=== PATIENT | male | born 2000 | race Two or more races ===

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

== ENCOUNTER → 2020-04-11 | Outpatient (REF) | payer OTHER | LOC: M SFHCLERA 15:12 | PROVIDERS: ATTEND Physician Assistant | DX: J02.9 Acute pharyngitis, unspecified (principal) ==

== ENCOUNTER 2020-04-21 21:47 | Emergency (ER) | payer OTHER ==
[~2020-04-21] VITALS: Ht 182.9 cm; Wt 113.6 kg
[2020-04-21] MEDS ORDERED: NAPROXEN 250 MG TAB PO ONE (23:30)
[2020-04-22 00:13] LABS: BASO % 0.3 % (0.0-1.0); EOS # 0.4 10^3/uL (0.0-0.5); EOS % 4.9 % (0.0-3.0); HEMATOCRIT 41.9 % (42.0-52.0); HEMOGLOBIN 14.7 g/dl (13.5-17.5); LYMPH # 2.1 10^3/uL (1.5-5.0); LYMPH % 27.8 % (24.0-44.0); MEAN CORPUSCULAR HEMOGLOBIN 29.5 pg (27.0-33.0); MEAN CORPUSCULAR HGB CONC 35.1 g/dl (32.0-36.5); MEAN CORPUSCULAR VOLUME 84.1 fl (80.0-96.0); MONO # 0.6 10^3/uL (0.0-0.8); MONO % 7.5 % (0.0-5.0); NEUTROPHILS # 4.4 10^3/uL (1.5-8.5); NEUTROPHILS % 59.2 % (36.0-66.0); PLATELET COUNT, AUTOMATED 235 10^3/uL (150-450); RED BLOOD COUNT 4.98 10^6/uL (4.30-6.10); WHITE BLOOD COUNT 7.4 10^3/uL (4.0-10.0)
[2020-04-22 00:29] LABS: CK-MB VALUE MASS < 1.0 NG/ML (<3.6); CPK CREATINE PHOSPHOKINASE 93 U/L (39-308); MB/CK RELATIVE INDEX 1.08 (< OR =4); TROPONIN I < 0.02 NG/ML (< 0.10)
[2020-04-22] MEDS ORDERED: NAPR-837 PO (00:51)
[2020-04-22 00:53] VITALS: BP 158/80
--- NOTE | 2020-04-22 11:23 | REP ---
Chest x-ray: Two views. History: Left-sided chest pain . Comparison study: No comparison study . Findings: The lungs are well inflated and free of infiltrate. The pleural angles are sharp. The heart size is normal. Pulmonary vasculature is not increased. No significant bony abnormality is seen. Impression: Negative chest x-ray. Electronically Signed by Nahid Henriquez MD 04/22/2020 07:58 A
--- NOTE | 2020-04-22 16:12 | ECGEPIP ---
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
== END 2020-04-22 00:59 | disposition home or self-care (01) ==
LOC: M ED 21:47
DX: R07.89 Other chest pain (principal)

== ENCOUNTER → 2020-05-05 | Outpatient (REF) | payer OTHER ==
[~2020-05-05] MED LIST changes: +NAPR-837 PO
== END ==
LOC: M SFHCLERA 10:16
PROVIDERS: ATTEND Nurse Practitioner Family
DX: J02.9 Acute pharyngitis, unspecified (principal)

== ENCOUNTER → 2020-09-23 | Outpatient (CLI) | payer SELFPAY | LOC: M LABSMTC 13:22 | PROVIDERS: ATTEND Pediatrics | DX: Z20.828 Contact with and (suspected) exposure to other viral communicable diseases (principal) ==

== ENCOUNTER → 2021-02-25 | Outpatient (REF) | payer OTHER | LOC: M LAB REF 15:46 | PROVIDERS: ATTEND Physician Assistant | DX: J02.9 Acute pharyngitis, unspecified (principal) ==

== ENCOUNTER → 2021-04-11 | Outpatient (REF) | payer OTHER | LOC: M LAB REF 16:23 | PROVIDERS: ATTEND Physician Assistant | DX: Z20.2 Contact with and (suspected) exposure to infections with a predominantly sexual mode of transmission (principal) ==